=== PATIENT | male | born 1980 | race African-American/Black ===

== ENCOUNTER 2021-08-21 11:16 | Emergency (ER) | payer OTHER ==
[~2021-08-21] VITALS: Ht 175.3 cm; Wt 74.8 kg
[2021-08-21] MEDS ORDERED: CEPHALEXIN500 MG PO (11:34)
[2021-08-21] MEDS ORDERED: TETANUS/DIPHTHERIA TOX ADULT 0.5 ML SYR IM ONE (11:45)
== END 2021-08-21 12:17 | disposition home or self-care (01) ==
LOC: ER 11:32
DX: T23.111A Burn of first degree of right thumb (nail), initial encounter (principal); X08.8XXA Exposure to other specified smoke, fire and flames, initial encounter; Y92.89 Other specified places as the place of occurrence of the external cause
CPT/HCPCS: 90714; 99282